=== PATIENT | male | born 1955 | race Caucasian/White ===

== ENCOUNTER 2018-01-01 19:07 | Observation (INO) | payer OTHER, SELFPAY ==
[2018-01-01 19:09] VITALS: BP 160/98; PULSE 86; RESP 18; TEMP 36.6; O2SAT 100; BMI 24.7
--- NOTE | 2018-01-01 19:20 | ED_ITS ---
HPI - Syncope <KD Rodas - Last Filed: 01/01/18 22:13> General Chief Complaint: Arrhythmia/Palpitations Stated Complaint: states passed out 3 hrs ago thinks AFIB Time Seen by Provider: 01/01/18 19:16 Source: patient Mode of arrival: ambulatory Limitations: no limitations History of Present Illness HPI narrative: A 62-year-old male with history of hypertension and AFib that is nonsmoker here for complaint of presyncope/syncopal episode earlier this afternoon. Approximately at 3:00 this afternoon he had a period of about 3-4 minutes where he felt like he was going to pass out he does not think that he did pass out however his state that he did. He states that his symptoms have resolved at times of exam. He denies any chest pain no shortness of breath. He denies any fevers or chills. He denies any headache. He states he feels better at this timeframe. He denies any other concerns or complaints at this timeframe. Related Data Home Medications Medication Instructions Recorded Confirmed apixaban [Eliquis] 5 mg PO BID 01/01/18 01/01/18 hydrochlorothiazide 25 mg PO DAILY 01/01/18 01/01/18 irbesartan 300 mg PO DAILY 01/01/18 01/01/18 Allergies Allergy/AdvReac Type Severity Reaction Status Date / Time codeine Allergy Unknown Verified 01/01/18 22:51 Influenza Virus Vaccines Allergy Unknown Verified 01/01/18 22:51 Review of Systems <KD Rodas - Last Filed: 01/01/18 22:13> Constitutional Denies chills, Denies fever(s), Denies lethargy and Denies weakness Eyes Denies change in vision, Denies eye discharge, Denies irritation and Denies loss of vision ENT Ears, Nose, Mouth, and Throat: Denies change in voice, Denies neck pain and Denies sore throat Cardiovascular Denies chest pain, Reports syncope, Denies irregular heart rhythm, Denies lightheadedness, Denies palpitations, Denies dyspnea, Denies dyspnea on exertion and Denies orthopnea Respiratory Denies cough, Denies dyspnea, Denies dyspnea on exertion and Denies wheezing Gastrointestinal Gastrointestinal: Denies abdominal pain, Denies change in bowel habits, Denies diarrhea, Denies nausea and Denies vomiting Genitourinary Denies hematuria, Denies flank pain, Denies urinary incontinence and Denies urinary urgency Musculoskeletal Denies neck pain Integumentary/Breasts Denies pruritus, Denies erythema, Denies rash and Denies wounds Neurologic Denies confusion, Reports syncope, Denies loss of vision and Denies weakness Psychiatric Denies anxiety, Denies confusion, Denies depression, Denies homicidal ideation and Denies suicidal ideation Endocrine Denies palpitations Hematologic/Lymphatic Denies easy bruising Allergic/Immunologic Denies wheezing Exam <KD Rodas - Last Filed: 01/01/18 22:13> Initial Vital Signs Initial Vital Signs: Vital Signs Temperature 97.8 F 01/01/18 19:09 Pulse Rate 86 01/01/18 19:09 Respiratory Rate 18 01/01/18 19:09 Blood Pressure 160/98 H 01/01/18 19:09 Pulse Oximetry 100 01/01/18 19:09 Const General: cooperative and well developed Nutritional Appearance: well nourished Orientation: alert, awake, oriented x3 and not confused HENIN Mouth: oral mucosae normal and moist mucous membranes Eyes Conjunctivae: conjunctivae normal Sclera: sclerae normal Pupils: PERRL EOM: EOM intact bilaterally Neck Neck: normal visual inspection, trachea midline, No lymphadenopathy, No midline deformity and No JVD Lymphatic: No lymphedema Chest Chest: normal inspection of the chest Resp Effort & Inspection: normal respiratory effort, able to speak in complete sentences, no respiratory distress and no use of accessory muscles Auscultation: clear to auscultation bilaterally, no rales, no rhonchi and no wheezes Cardio Rate: regular rate Rhythm: abnormal rhythm irregularly irregular Heart Sounds: no click, no gallops, no murmurs and no rubs Pulses: normal peripheral pulses Skin General: no rashes or lesions noted Neuro Cognition: normal cognition Speech: speech normal Gait: normal gait Motor: muscle tone normal throughout Sensory Exam: no sensory deficits noted <Willian Ambrocio DO - Last Filed: 01/02/18 05:22> Initial Vital Signs Initial Vital Signs: Vital Signs Temperature 97.8 F 01/01/18 19:09 Pulse Rate 86 01/01/18 19:09 Respiratory Rate 18 01/01/18 19:09 Blood Pressure 160/98 H 01/01/18 19:09 Pulse Oximetry 100 01/01/18 19:09 Course <KD Rodas - Last Filed: 01/01/18 22:13> Orders Ordered: ED Orders 01/01/18 21:29 Consult to Discharge Planning Routine EC echo doppler complete Routine 01/02/18 Basic Metabolic Panel Routine Complete Blood Count AUTO DIFF Routine Magnesium Routine Apixaban (Eliquis) 5 mg PO BID [facility] Last Admin: 01/01/18 22:54 Dose: Hydrochlorothiazide (Hydrochlorothiazide) 25 mg PO DAILY CARLEY Irbesartan (Avapro) 300 mg PO DAILY CARLEY Discontinued Medications Sodium Chloride (Normal Saline 0.9%) 1,000 mls @ 1,000 mls/hr IV BOLUS ONE Stop: 01/01/18 20:32 Last Infusion: 01/01/18 21:06 Dose: 0 mls/hr Admin: 01/01/18 19:30 Dose: 1,000 mls/hr Vital Signs - 8 hr 01/01/18 22:05 01/02/18 00:16 Temperature 97.9 F 97.6 F Pulse Rate 71 72 Pulse Rate [Orthostatic Lying] 72 Pulse Rate [Orthostatic Sitting] 75 Pulse Rate [Orthostatic Standing] 81 Respiratory Rate 18 16 Blood Pressure 159/97 H 139/86 Blood Pressure [Orthostatic Lying] 139/86 Blood Pressure [Orthostatic Sitting] 158/96 H Blood Pressure [Orthostatic Standing] 143/93 H Pulse Oximetry 100 98 <Willian Ambrocio DO - Last Filed: 01/02/18 05:22> Orders Ordered: ED Orders 01/01/18 21:29 Consult to Discharge Planning Routine EC echo doppler complete Routine 01/02/18 Basic Metabolic Panel Routine Complete Blood Count AUTO DIFF Routine Magnesium Routine Apixaban (Eliquis) 5 mg PO BID [facility] Last Admin: 01/01/18 22:54 Dose: Hydrochlorothiazide (Hydrochlorothiazide) 25 mg PO DAILY CARLEY Irbesartan (Avapro) 300 mg PO DAILY CARLEY Discontinued Medications Sodium Chloride (Normal Saline 0.9%) 1,000 mls @ 1,000 mls/hr IV BOLUS ONE Stop: 01/01/18 20:32 Last Infusion: 01/01/18 21:06 Dose: 0 mls/hr Admin: 01/01/18 19:30 Dose: 1,000 mls/hr Vital Signs - 8 hr 01/01/18 22:05 01/02/18 00:16 Temperature 97.9 F 97.6 F Pulse Rate 71 72 Pulse Rate [Orthostatic Lying] 72 Pulse Rate [Orthostatic Sitting] 75 Pulse Rate [Orthostatic Standing] 81 Respiratory Rate 18 16 Blood Pressure 159/97 H 139/86 Blood Pressure [Orthostatic Lying] 139/86 Blood Pressure [Orthostatic Sitting] 158/96 H Blood Pressure [Orthostatic Standing] 143/93 H Pulse Oximetry 100 98 MDM - Syncope <KD Rodas - Last Filed: 01/01/18 22:13> Lab Data Result diagrams: 01/01/18 19:54 01/01/18 19:54 Lab Results 01/01/18 01/01/18 01/01/18 Range/Units 19:30 19:30 19:54 WBC 9.6 (4.5-11.0) X10^3/uL RBC 4.61 (4.5-5.9) X10^6/uL Hgb 14.8 (13.5-17.5) g/dL Hct 43.6 (41-53) % MCV 94.6 (80-100) fL MCH 32.1 (26-34) PG MCHC 33.9 (30-36) % RDW 13.3 (11.6-14.8) % Plt Count 220 (150-400) X10^3/uL Neut % (Auto) 79.4 H (50-75) % Lymph % (Auto) 14.7 L (25-40) % Kings % (Auto) 4.4 (3-14) % Eos % (Auto) 0.9 L (2-4) % Baso % (Auto) 0.6 (0-2) % Neut # (Auto) 7600 H (8904-2806) /uL Sodium (137-145) mmol/L Potassium (3.4-5.1) mmol/L Chloride (98-107) mmol/L Carbon Dioxide (22-32) mmol/L BUN (9-20) mg/dL Creatinine (0.66-1.25) mg/dL Estimated GFR (>60) mL/min BUN/Creatinine Ratio (6-22) Glucose (80-110) mg/dL Calcium (8.4-10.2) mg/dL Magnesium 1.9 (1.6-2.3) mg/dL Total Bilirubin (0.2-1.3) mg/dL AST (17-59) IU/L ALT (21-72) IU/L Alkaline Phosphatase (38-126) U/L Total Creatine Kinase (55-170) U/L CK-MB (CK-2) CK-MB (CK-2) Rel Index Troponin I (0.01-0.034) ng/mL Total Protein (6.3-8.2) g/dL Albumin (3.5-5.0) g/dL Globulin (1.7-4.1) g/dL Albumin/Globulin Ratio (1.0-2.8) TSH 2.19 (0.47-4.68) uIU/mL 01/01/18 Range/Units 19:54 WBC (4.5-11.0) X10^3/uL RBC (4.5-5.9) X10^6/uL Hgb (13.5-17.5) g/dL Hct (41-53) % MCV (80-100) fL MCH (26-34) PG MCHC (30-36) % RDW (11.6-14.8) % Plt Count (150-400) X10^3/uL Neut % (Auto) (50-75) % Lymph % (Auto) (25-40) % Kings % (Auto) (3-14) % Eos % (Auto) (2-4) % Baso % (Auto) (0-2) % Neut # (Auto) (1609-2003) /uL Sodium 141 (137-145) mmol/L Potassium 3.8 (3.4-5.1) mmol/L Chloride 101 (98-107) mmol/L Carbon Dioxide 27 (22-32) mmol/L BUN 20 (9-20) mg/dL Creatinine 1.10 (0.66-1.25) mg/dL Estimated GFR > 60.0 (>60) mL/min BUN/Creatinine Ratio 18.2 (6-22) Glucose 112 H (80-110) mg/dL Calcium 9.7 (8.4-10.2) mg/dL Magnesium (1.6-2.3) mg/dL Total Bilirubin 0.8 (0.2-1.3) mg/dL AST 27 (17-59) IU/L ALT 37 (21-72) IU/L Alkaline Phosphatase 57 (38-126) U/L Total Creatine Kinase 76 (55-170) U/L CK-MB (CK-2) TNP CK-MB (CK-2) Rel Index TNP Troponin I 0.012 (0.01-0.034) ng/mL Total Protein 7.1 (6.3-8.2) g/dL Albumin 4.7 (3.5-5.0) g/dL Globulin 2.4 (1.7-4.1) g/dL Albumin/Globulin Ratio 2.0 (1.0-2.8) TSH (0.47-4.68) uIU/mL Urine Dip Bedside Urine Glucose Negative Bedside Urine Bilirubin - Negative Bedside Urine Ketone - Negative Urine Specific [place] 1.010 Bedside Urine Occult Blood - Negative Bedside Urine pH 6.0 Bedside Urine Protein - Negative Bedside Urine Urobilinogen - Negative Bedside Urine Nitrite - Negative Bedside Urine Leukocytes - Negative Esterase Imaging Data Chest x-ray: Radiologist's impression: [place] [address] XRay Report Signed Patient: Jackson Boles WMR#: [id number] : 5Acct:[id number] Age/Sex: 62 / MDate of Service: 01/01/18 Loc: ED Accession Number: [id number] Procedure: XR chest 1V Ordering Provider: Jonnie Almaraz PROCEDURE: XR CHEST 1V INDICATIONS: Pre syncopal episode earlier today history of AFib TECHNIQUE: One view of the chest was acquired. COMPARISON: None. FINDINGS: Surgical changes and devices: None. Lungs and pleura: No pleural effusions or pneumothorax. Lungs are clear. Mediastinum: Mediastinal contours appear normal. Heart size is normal. Bones and chest wall: No suspicious bony lesions. Overlying soft tissues appear unremarkable. IMPRESSION: No acute pulmonary process. Dictated by: Nell Valente M.D. on 01/01/2018 at 19:44 Approved by: Nell Valente M.D. on 01/01/2018 at 19:44 ECG Data Interpretation: EKG shows atrial fibrillation. No ST elevation or depression. He also has had some PVCs. Ventricular rate of 84. QRS duration 97. QT of 390. MDM Narrative Medical decision making narrative: EKG shows atrial fibrillation with a few PVCs. No ST elevation or depression. Chest x-ray was obtained was negative for any acute findings. CBC and Chem panel were obtained and were unremarkable. Cardiac enzymes were obtained and were negative. Unsure of the cause of his syncope however is he has a history of having a Deandre episodes in the past he is currently awaiting a Holter monitor for further evaluation. Suspect that he may have had a bradycardic episode causing the syncope. A recommended the patient that he stay in the hospital overnight for observation to ensure that we do not have any more syncopal episodes. Patient reluctantly agreed. Discussed case with hospitalist KD shook who accepted patient. [facility] <Willian Ambrocio DO - Last Filed: 01/02/18 05:22> Lab Data Lab Results 01/01/18 01/01/18 01/01/18 Range/Units 19:30 19:30 19:54 WBC 9.6 (4.5-11.0) X10^3/uL RBC 4.61 (4.5-5.9) X10^6/uL Hgb 14.8 (13.5-17.5) g/dL Hct 43.6 (41-53) % MCV 94.6 (80-100) fL MCH 32.1 (26-34) PG MCHC 33.9 (30-36) % RDW 13.3 (11.6-14.8) % Plt Count 220 (150-400) X10^3/uL Neut % (Auto) 79.4 H (50-75) % Lymph % (Auto) 14.7 L (25-40) % Kings % (Auto) 4.4 (3-14) % Eos % (Auto) 0.9 L (2-4) % Baso % (Auto) 0.6 (0-2) % Neut # (Auto) 7600 H (4666-6216) /uL Sodium (137-145) mmol/L Potassium (3.4-5.1) mmol/L Chloride (98-107) mmol/L Carbon Dioxide (22-32) mmol/L BUN (9-20) mg/dL Creatinine (0.66-1.25) mg/dL Estimated GFR (>60) mL/min BUN/Creatinine Ratio (6-22) Glucose (80-110) mg/dL Calcium (8.4-10.2) mg/dL Magnesium 1.9 (1.6-2.3) mg/dL Total Bilirubin (0.2-1.3) mg/dL AST (17-59) IU/L ALT (21-72) IU/L Alkaline Phosphatase (38-126) U/L Total Creatine Kinase (55-170) U/L CK-MB (CK-2) CK-MB (CK-2) Rel Index Troponin I (0.01-0.034) ng/mL Total Protein (6.3-8.2) g/dL Albumin (3.5-5.0) g/dL Globulin (1.7-4.1) g/dL Albumin/Globulin Ratio (1.0-2.8) TSH 2.19 (0.47-4.68) uIU/mL //18 Range/Units 19:54 WBC (4.5-11.0) X10^3/uL RBC (4.5-5.9) X10^6/uL Hgb (13.5-17.5) g/dL Hct (41-53) % MCV (80-100) fL MCH (26-34) PG MCHC (30-36) % RDW (11.6-14.8) % Plt Count (150-400) X10^3/uL Neut % (Auto) (50-75) % Lymph % (Auto) (25-40) % Kings % (Auto) (3-14) % Eos % (Auto) (2-4) % Baso % (Auto) (0-2) % Neut # (Auto) (1257-3786) /uL Sodium 141 (137-145) mmol/L Potassium 3.8 (3.4-5.1) mmol/L Chloride 101 (98-107) mmol/L Carbon Dioxide 27 (22-32) mmol/L BUN 20 (9-20) mg/dL Creatinine 1.10 (0.66-1.25) mg/dL Estimated GFR > 60.0 (>60) mL/min BUN/Creatinine Ratio 18.2 (6-22) Glucose 112 H (80-110) mg/dL Calcium 9.7 (8.4-10.2) mg/dL Magnesium (1.6-2.3) mg/dL Total Bilirubin 0.8 (0.2-1.3) mg/dL AST 27 (17-59) IU/L ALT 37 (21-72) IU/L Alkaline Phosphatase 57 (38-126) U/L Total Creatine Kinase 76 (55-170) U/L CK-MB (CK-2) TNP CK-MB (CK-2) Rel Index TNP Troponin I 0.012 (0.01-0.034) ng/mL Total Protein 7.1 (6.3-8.2) g/dL Albumin 4.7 (3.5-5.0) g/dL Globulin 2.4 (1.7-4.1) g/dL Albumin/Globulin Ratio 2.0 (1.0-2.8) TSH (0.47-4.68) uIU/mL Urine Dip Bedside Urine Glucose Negative Bedside Urine Bilirubin - Negative Bedside Urine Ketone - Negative Urine Specific [place] 1.010 Bedside Urine Occult Blood - Negative Bedside Urine pH 6.0 Bedside Urine Protein - Negative Bedside Urine Urobilinogen - Negative Bedside Urine Nitrite - Negative Bedside Urine Leukocytes - Negative Esterase Discharge Plan Departure Patient Disposition: Admitted as Observation Clinical Impression: Pre-syncope Discharge Date/Time: 01/01/18 21:50 Interventions: ED Discharge Assessment Last Done: 01/01/18 21:22 Admit Date/Time: 01/01/18 21:05 Admit Provider: Jeanna Hutton <Willian Ambrocio DO - Last Filed: 01/02/18 05:22> Cosign ED Attending Billieature Attestation: I was immediately available in the department for consultation. Documentation has been reviewed. I agree with assessment and plan.
[2018-01-01] MEDS: SODIUM CHLORIDE 0.9% 1,000 ML 1000 ML IV (19:30)
--- NOTE | 2018-01-01 19:34 | DI.RAD.S_ITS ---
PROCEDURE: XR CHEST 1V INDICATIONS: Pre syncopal episode earlier today history of AFib TECHNIQUE: One view of the chest was acquired. COMPARISON: None. FINDINGS: Surgical changes and devices: None. Lungs and pleura: No pleural effusions or pneumothorax. Lungs are clear. Mediastinum: Mediastinal contours appear normal. Heart size is normal. Bones and chest wall: No suspicious bony lesions. Overlying soft tissues appear unremarkable. IMPRESSION: No acute pulmonary process. Dictated by: Nell Valente M.D. on 01/01/2018 at 19:44 Approved by: Nell Valente M.D. on 01/01/2018 at 19:44
[2018-01-01 20:00] VITALS: BP 152/92; PULSE 68; RESP 17; O2SAT 100
[2018-01-01 20:08] LABS: Add Manual Diff / Slide Review NO; Basophils Percent Auto 0.6 % (0-2); Eosinophils Percent Auto 0.9 % (2-4); Hematocrit 43.6 % (41-53); Hemoglobin 14.8 g/dL (13.5-17.5); Lymphocytes Percent Auto 14.7 % (25-40); Mean Corpuscular HGB Conc 33.9 % (30-36); Mean Corpuscular Hemoglobin 32.1 PG (26-34); Mean Corpuscular Volume 94.6 fL (80-100); Monocytes Percent Auto 4.4 % (3-14); Neutrophils Absolute Auto 7600 /uL (3000-5900); Neutrophils Percent Auto 79.4 % (50-75); Platelet Count 220 X10^3/uL (150-400); Red Blood Cell Count 4.61 X10^6/uL (4.5-5.9); Red Cell Distribution Width 13.3 % (11.6-14.8); White Blood Cell Count 9.6 X10^3/uL (4.5-11.0)
[2018-01-01 20:17] LABS: Alanine Aminotransferase 37 IU/L (21-72); Albumin 4.7 g/dL (3.5-5.0); Alkaline Phosphatase 57 U/L (38-126); Aspartate Aminotransferase 27 IU/L (17-59); BUN Creatinine Ratio 18.2 (6-22); Bilirubin Total 0.8 mg/dL (0.2-1.3); Blood Urea Nitrogen 20 mg/dL (9-20); Calcium 9.7 mg/dL (8.4-10.2); Carbon Dioxide 27 mmol/L (22-32); Chloride 101 mmol/L (98-107); Creatine Kinase 76 U/L (55-170); Estimated Glomerular Filt Rate > 60.0 mL/min (>60); Globulin 2.4 g/dL (1.7-4.1); Glucose 112 mg/dL (80-110); HEMOLYSIS 16 (0-50); Potassium 3.8 mmol/L (3.4-5.1); Sodium 141 mmol/L (137-145); Total Protein 7.1 g/dL (6.3-8.2)
[2018-01-01 20:29] LABS: Troponin I 0.012 ng/mL (0.01-0.034)
[2018-01-01 21:00] VITALS: BP 161/100; PULSE 82; RESP 18; O2SAT 99
[2018-01-01 21:14] VITALS: BMI 24.7
--- NOTE | 2018-01-01 21:31 | PM.HP.1 ---
History of Present Illness Date Patient Seen: 01/01/18 Time Patient Seen: 21:10 Chief complaint: states passed out 3 hrs ago thinks AFIB Narrative: The patient is a 62-year-old male with PMH significant for persistent AFIB (chronically AC w/ Eliquis) and HTN. Patient presents out of a concern for a pre-syncopal event. The event has taken place in the 4:00 a.m. hour, respectively, on 01/01/2018. At time of the event patient was in an upright position (standing). He was not involved in an activity that would precipitate a vasovagal response. Reports sudden onset palpitations, dizziness, and an awareness of an impending syncopal event. At that time he reclined himself onto a chair. Palpitations and dizziness resolved in 4-5 seconds. Patient reports checking his heart rate on the iWatch and notes it to be in the 40s. He did not experience a syncopal event w/ loss of consciousness. Denies concurrent symptoms a headache, change in vision, chest pain, dyspnea, diaphoresis, nausea, vomiting, confusion or disorientation. Patient has had a similar event in January of 2017. At that time was monitored w/ a ZIO Patch for 60 days. Patient does follow with Cardiology, [facility] in [place], [place]. Patient has an underlying history of persistent AFIB. He is not on a beta-nathalia or an anti arrhythmic medication. He is anti-coagulated with Eliquis. Denies prior history of cardioversion or catheter ablation. Patient states that his heart rate typically runs in the 40s while he is sleeping, but never while he is awake. Heart rate of 60-70s bpm during waking hours. Patient exercises routinely. Notes paddle boarding 6 miles daily or 1.5 hours of cardioactivity, in the past week, has not been able to exercise routinely; however, does not attribute that to exercise intolerance but to circumstances at home. Patient does have elevated blood pressure. Recently his ARB was changed from losartan to irbesartan. Last week, patient reports experiencing hematuria. Reports elevated PSA at 5.25. Family history significant for prostate cancer in patient's father. Patient History Medical History Chronic atrial fibrillation (Acute) Essential hypertension (Acute) Pre-syncope (Acute) Family & Social History Safety & Behavioral: Feels Safe in Current Yes Environment Tobacco & Substance use: Smoking Status Never smoker alcohol intake frequency a few times a week Substance Use Type does not use Meds Home Medications Medication Instructions Recorded Confirmed Type apixaban [Eliquis] 5 mg PO BID 01/01/18 01/01/18 History hydrochlorothiazide 25 mg PO DAILY 01/01/18 01/01/18 History irbesartan 300 mg PO DAILY 01/01/18 01/01/18 History Review of Systems Review of Systems All systems reviewed & are unremarkable except as noted in HPI and below Exam Vital Signs (past 8 hours): - 01/01/18 19:09 01/01/18 20:00 01/01/18 21:00 Temperature 97.8 F Pulse Rate 86 68 82 Respiratory Rate 18 17 18 Blood Pressure 160/98 H Blood Pressure [Right Arm] 152/92 H 161/100 H Pulse Oximetry 100 100 99 Oxygen Delivery Method Room Air Narrative Exam Narrative: Constitutional: NAD Neurologic: AOx3, no focal neurological deficits Head: NC, AT Eyes: PERRL, EOMI, Ears: external ears normal, no otorrhea Nose: external nose normal, no rhinorrhea or epistaxis Throat: MMM, oropharynx w/o exudate Neck: no masses, lymphadenopathy, or JVD Chest / Respiratory: equal chest rise, unlabored respiratory effort, CTAB Heart / CV: Irregularly irregular, no murmur Abdomen / GI: round, NT, ND, + BS, no organomegaly : no suprapubic tenderness, no CVA Peripheral / Vascular: warm to touch, DP and PT pulses palpable, no edema Musc: full ROM of upper and lower extremities, adequate muscle tone and bulk Skin: no ecchymosis or suspicious lesions / ulcers Objective Labs Result Diagrams: 01/01/18 19:54 01/01/18 19:54 Labs: Laboratory Results - last 24 hr 01/01/18 01/01/18 19:54 19:54 WBC 9.6 RBC 4.61 Hgb 14.8 Hct 43.6 MCV 94.6 MCH 32.1 MCHC 33.9 RDW 13.3 Plt Count 220 Neut % (Auto) 79.4 H Lymph % (Auto) 14.7 L [place] % (Auto) 4.4 Eos % (Auto) 0.9 L Baso % (Auto) 0.6 Neut # (Auto) 7600 H Sodium 141 Potassium 3.8 Chloride 101 Carbon Dioxide 27 BUN 20 Creatinine 1.10 Estimated GFR > 60.0 BUN/Creatinine Ratio 18.2 Glucose 112 H Calcium 9.7 Total Bilirubin 0.8 AST 27 ALT 37 Alkaline Phosphatase 57 Total Creatine Kinase 76 CK-MB (CK-2) TNP CK-MB (CK-2) Rel Index TNP Troponin I 0.012 Total Protein 7.1 Albumin 4.7 Globulin 2.4 Albumin/Globulin Ratio 2.0 Assessment & Plan Plan: Assessment/Plan Narrative: Presyncope Likely of cardiac origin, potentially in the setting of a bertin-arrhythmia w/ HR in the 40s at time of the event No overt e-lyte abnormalities - Admit w/ observation status - Tele monitoring, continuous - Orhtostatic BP, QShift - Echo in am - Add Magnesium Chronic atrial fibrillation with controlled ventricular rate - not on any rate/rhythm control medications - contraindication to some CCB and BB d/t bradyarrhythmia - continue anticoagulation with Eliquis per ASSISTANT COUNSEL dose / regimen Hypertension, sub-optimally controlled ASSISTANT COUNSEL anti-hypertensive regimen consists of a HCTZ 25 mg daily and ibersartan 300 mg QD Reports an allergy to ACEi - cough. Reports intolerance to IV vasodilator, not able to recall specific medication. - trend BP - consider Procardia XL 30 mg if hypertension persists Bundle Branch Block (right) New vs pre-existing... To be evaluated outpatient. No chest pain. EKG non-ischemic. Trop WNL. Hematuria, no bleeding at present time Hematuria last week. Hgb stable. On Eliquis. Hx of recently elevated PSA, follows outpatient closely. FHx of prostate cancer. - F/u w/ urology outpatient
--- NOTE | 2018-01-01 21:48 | P.HP_ITS ---
History of Present Illness Date Patient Seen: 01/01/18 Time Patient Seen: 21:10 Chief complaint: states passed out 3 hrs ago thinks AFIB Narrative: The patient is a 62-year-old male with PMH significant for persistent AFIB (chronically AC w/ Eliquis) and HTN. Patient presents out of a concern for a pre-syncopal event. The event has taken place in the 4:00 a.m. hour, respectively, on 01/01/2018. At time of the event patient was in an upright position (standing). He was not involved in an activity that would precipitate a vasovagal response. Reports sudden onset palpitations, dizziness , and an awareness of an impending syncopal event. At that time he reclined himself onto a chair. Palpitations and dizziness resolved in 4-5 seconds. Patient reports checking his heart rate on the iWatch and notes it to be in the 40s. He did not experience a syncopal event w/ loss of consciousness. Denies concurrent symptoms a headache, change in vision, chest pain, dyspnea, diaphoresis, nausea, vomiting, confusion or disorientation. Patient has had a similar event in January of 2017. At that time was monitored w/ a ZIO Patch for 60 days. Patient does follow with Cardiology, [facility] [place], [place]. Patient has an underlying history of persistent AFIB. He is not on a beta- nathalia or an anti arrhythmic medication. He is anti-coagulated with Eliquis. Denies prior history of cardioversion or catheter ablation. Patient states that his heart rate typically runs in the 40s while he is sleeping, but never while he is awake. Heart rate of 60-70s bpm during waking hours. Patient exercises routinely. Notes paddle boarding 6 miles daily or 1.5 hours of cardioactivity, in the past week, has not been able to exercise routinely; however, does not attribute that to exercise intolerance but to circumstances at home. Patient does have elevated blood pressure. Recently his ARB was changed from losartan to irbesartan. Last week, patient reports experiencing hematuria. Reports elevated PSA at 5.25. Family history significant for prostate cancer in patient's father. Patient History Medical History Chronic atrial fibrillation (Acute) Essential hypertension (Acute) Pre-syncope (Acute) Family & Social History Safety & Behavioral: Feels Safe in Current Yes Environment Tobacco & Substance use: Smoking Status Never smoker alcohol intake frequency a few times a week Substance Use Type does not use Meds Home Medications Medication Instructions Recorded Confirmed Type apixaban [Eliquis] 5 mg PO BID 01/01/18 01/01/18 History hydrochlorothiazide 25 mg PO DAILY 01/01/18 01/01/18 History irbesartan 300 mg PO DAILY 01/01/18 01/01/18 History Review of Systems Review of Systems All systems reviewed & are unremarkable except as noted in HPI and below Exam Vital Signs (past 8 hours): - 01/01/18 19:09 01/01/18 20:00 01/01/18 21:00 Temperature 97.8 F Pulse Rate 86 68 82 Respiratory Rate 18 17 18 Blood Pressure 160/98 H Blood Pressure [Right Arm] 152/92 H 161/100 H Pulse Oximetry 100 100 99 Oxygen Delivery Method Room Air Narrative Exam Narrative: Constitutional: NAD Neurologic: AOx3, no focal neurological deficits Head: NC, AT Eyes: PERRL, EOMI, Ears: external ears normal, no otorrhea Nose: external nose normal, no rhinorrhea or epistaxis Throat: MMM, oropharynx w/o exudate Neck: no masses, lymphadenopathy, or JVD Chest / Respiratory: equal chest rise, unlabored respiratory effort, CTAB Heart / CV: Irregularly irregular, no murmur Abdomen / GI: round, NT, ND, + BS, no organomegaly : no suprapubic tenderness, no CVA Peripheral / Vascular: warm to touch, DP and PT pulses palpable, no edema Musc: full ROM of upper and lower extremities, adequate muscle tone and bulk Skin: no ecchymosis or suspicious lesions / ulcers Objective Labs Result Diagrams: 01/01/18 19:54 01/01/18 19:54 Labs: Laboratory Results - last 24 hr 01/01/18 01/01/18 19:54 19:54 WBC 9.6 RBC 4.61 Hgb 14.8 Hct 43.6 MCV 94.6 MCH 32.1 MCHC 33.9 RDW 13.3 Plt Count 220 Neut % (Auto) 79.4 H Lymph % (Auto) 14.7 L [place] % (Auto) 4.4 Eos % (Auto) 0.9 L Baso % (Auto) 0.6 Neut # (Auto) 7600 H Sodium 141 Potassium 3.8 Chloride 101 Carbon Dioxide 27 BUN 20 Creatinine 1.10 Estimated GFR > 60.0 BUN/Creatinine Ratio 18.2 Glucose 112 H Calcium 9.7 Total Bilirubin 0.8 AST 27 ALT 37 Alkaline Phosphatase 57 Total Creatine Kinase 76 CK-MB (CK-2) TNP CK-MB (CK-2) Rel Index TNP Troponin I 0.012 Total Protein 7.1 Albumin 4.7 Globulin 2.4 Albumin/Globulin Ratio 2.0 Assessment & Plan Plan: Assessment/Plan Narrative: Presyncope Likely of cardiac origin, potentially in the setting of a bertin-arrhythmia w/ HR in the 40s at time of the event No overt e-lyte abnormalities - Admit w/ observation status - Tele monitoring, continuous - Orhtostatic BP, QShift - Echo in am - Add Magnesium Chronic atrial fibrillation with controlled ventricular rate - not on any rate/rhythm control medications - contraindication to some CCB and BB d/t bradyarrhythmia - continue anticoagulation with Eliquis per LOSS PREVENTION OPERATIONS MANAGER dose / regimen Hypertension, sub-optimally controlled LOSS PREVENTION OPERATIONS MANAGER anti-hypertensive regimen consists of a HCTZ 25 mg daily and ibersartan 300 mg QD Reports an allergy to ACEi - cough. Reports intolerance to IV vasodilator, not able to recall specific medication. - trend BP - consider Procardia XL 30 mg if hypertension persists Bundle Branch Block (right) New vs pre-existing... To be evaluated outpatient. No chest pain. EKG non-ischemic. Trop WNL. Hematuria, no bleeding at present time Hematuria last week. Hgb stable. On Eliquis. Hx of recently elevated PSA, follows outpatient closely. FHx of prostate cancer. - F/u w/ urology outpatient
[2018-01-01 22:05] VITALS: BP 159/97; PULSE 71; RESP 18; TEMP 36.6; O2SAT 100
[2018-01-01 22:55] LABS: Magnesium 1.9 mg/dL (1.6-2.3)
[2018-01-01 23:27] LABS: Thyroid Stimulating Hormone 2.19 uIU/mL (0.47-4.68)
[2018-01-02 00:16] VITALS: BP 139/86; BP 143/93; BP 158/96; PULSE 72; PULSE 75; PULSE 81; RESP 16; TEMP 36.4; O2SAT 98
[2018-01-02 05:38] VITALS: BP 165/101; PULSE 58; RESP 16; TEMP 36.4; O2SAT 98
[2018-01-02] MEDS: APIXABAN 5 MG TABLET PO (06:35)
[2018-01-02] MEDS: hydroCHLOROthiazide 25 MG TABLET PO (06:36)
[2018-01-02] MEDS: IRBESARTAN 150 MG TABLET 300 MG PO (06:36)
[2018-01-02 07:00] VITALS: BP 153/100; PULSE 65; RESP 17; TEMP 36.6; O2SAT 100
--- NOTE | 2018-01-02 07:28 | P.DS_ITS ---
History of Present Illness Date Patient Seen: 01/02/18 Time Patient Seen: 11:46 Chief complaint: states passed out 3 hrs ago thinks AFIB Narrative: THIS IS A VERY PLEASANT 62-YEAR-OLD MALE ADMITTED TO THE HOSPITAL AFTER A PRESYNCOPAL EPISODE. PATIENT REPORTED THAT HE WAS AT HOME AND STARTED FEELING VERY DIZZY AND FELT LIKE HE WAS GOING TO PASS OUT. HE HAD A DEVICE CHECK HIS PULSE AND REALIZES PULSE WAS IN THE 40S. THIS IS THE 1ST TIME THIS HAS HAPPENED. 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 AT THIS TIME HE IS ASYMPTOMATIC. 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 WE AGREE WITH PATIENT'S WISHES TO BE DISCHARGED. AT THIS POINT ADDITIONAL MEASURE WITH DEFERRED TO THE OUTPATIENT PROVIDERS Discharge Providers Date of admission: 01/01/18 21:05 Consults: 01/01/18 21:29 Consult to Discharge Planning Routine Comment: Discharge provider: Aleksandar Henson DO Discharge Date: 01/02/18 Summary Discharge Diagnosis: PRESYNCOPAL EPISODE. THIS IS SECONDARY TO SCOTTIE TACHY SYNDROME. OUTPATIENT MANAGEMENT WITH POSSIBLE PACEMAKER PLACEMENT CHRONIC ATRIAL FIBRILLATION. APPEARS STABLE. HYPERTENSION STABLE AT THIS POINT. PATIENT IS ON HCTZ AND AN ARB WHICH WILL CONTINUE AT THIS TIME REPORTED HEMATURIA. OUTPATIENT MANAGEMENT Hospital Course: PATIENT ADMITTED TO THE HOSPITAL DUE TO PRESYNCOPAL EPISODE. THIS WAS SUSPECTED TO BE SECONDARY TO BRADYCARDIA. AT THIS POINT, HIS HEART RATE IS AT BASELINE AND PATIENT APPEARS ASYMPTOMATIC. HE IS BEING FOLLOWED OUTPATIENT BY CARDIOLOGY FOR FURTHER MANAGEMENT WITH POSSIBLE PACEMAKER PLACEMENT. PATIENT REQUESTED TO BE DISCHARGED. AT THIS POINT WE AGREED DUE TO THE LIMITATION OF OUR RESOURCES IN THE HOSPITAL. PATIENT APPEARED TO BE STABLE. ADDITIONAL MEASURE AT THIS VISIT WILL BE DEFERRED TO HIS OUTPATIENT PROVIDERS. WE ALSO NOTED PATIENT HAD SOME MILD HEMATURIA. AGAIN HE CAN BE FOLLOWED OUTPATIENT WITH UROLOGY INDICATED FOR FURTHER WORKUP Status at Discharge Cognitive/behavioral status at discharge: STABLE TO HOME IN NO ACUTE DISTRESS Functional status at discharge: independent ambulation Overall status at discharge: patient is back to baseline Time Spent with Patient Greater than 30 minutes Exam Vital Signs (past 8 hours): - 01/02/18 00:16 01/02/18 05:38 Temperature 97.6 F 97.5 F L Pulse Rate 72 58 L Pulse Rate [Orthostatic Lying] 72 Pulse Rate [Orthostatic Sitting] 75 Pulse Rate [Orthostatic Standing] 81 Respiratory Rate 16 16 Blood Pressure 139/86 165/101 H Blood Pressure [Orthostatic Lying] 139/86 Blood Pressure [Orthostatic Sitting] 158/96 H Blood Pressure [Orthostatic Standing] 143/93 H Pulse Oximetry 98 98 Oxygen Delivery Method Room Air Narrative Exam Narrative: NO ACUTE DISTRESS. PATIENT IS ALERT ORIENTED X3. VITAL SIGNS STABLE HEAD ATRAUMATIC NORMOCEPHALIC NECK : SUPPLE WITHOUT ADENOPATHY BECAUSE SHE WOULD HAS REVIEWED THE EYE: EOMI, PERRLA, NORMAL CONJUNCTIVA CHEST: REGULAR RATE.. NO RUBS. PMI IS NON DISPLACED. NO MURMUR PULMONARY DECREASED AIR MOVEMENT OVER THE BASES. MILD BIBASILAR CRACKLES NOTED ; NO INCREASED DULLNESS TO PERCUSSION EXTREMITIES: 1+ EDEMA. NONPITTING. NO CYANOSIS CLUBBING NOTED. NEURO: CRANIAL NERVES 2-12 GROSSLY INTACT. NO FOCAL NEUROLOGICAL DEFICIT NOTED. MSK: NORMAL RANGE OF MOTION FOR AGE. NO JOINT EFFUSION. SKIN: NORMAL FOR ETHNICITY; NO ECCHYMOSIS. NO LESION. NORMAL TURGOR. : NORMAL EXTERNAL GENITALIA. PSYCH : APPROPRIATE MOOD AND AFFECT. ALERT AWAKE ORIENTED X3 Objective Labs Result Diagrams: 01/02/18 06:45 01/02/18 Unknown Labs: Laboratory Results - last 24 hr 01/01/18 01/01/18 01/01/18 19:30 19:30 19:54 WBC 9.6 RBC 4.61 Hgb 14.8 Hct 43.6 MCV 94.6 MCH 32.1 MCHC 33.9 RDW 13.3 Plt Count 220 Neut % (Auto) 79.4 H Lymph % (Auto) 14.7 L [place] % (Auto) 4.4 Eos % (Auto) 0.9 L Baso % (Auto) 0.6 Neut # (Auto) 7600 H Sodium Potassium Chloride Carbon Dioxide BUN Creatinine Estimated GFR BUN/Creatinine Ratio Glucose Calcium Magnesium 1.9 Total Bilirubin AST ALT Alkaline Phosphatase Total Creatine Kinase CK-MB (CK-2) CK-MB (CK-2) Rel Index Troponin I Total Protein Albumin Globulin Albumin/Globulin Ratio TSH 2.19 01/01/18 19:54 WBC RBC Hgb Hct MCV MCH MCHC RDW Plt Count Neut % (Auto) Lymph % (Auto) [place] % (Auto) Eos % (Auto) Baso % (Auto) Neut # (Auto) Sodium 141 Potassium 3.8 Chloride 101 Carbon Dioxide 27 BUN 20 Creatinine 1.10 Estimated GFR > 60.0 BUN/Creatinine Ratio 18.2 Glucose 112 H Calcium 9.7 Magnesium Total Bilirubin 0.8 AST 27 ALT 37 Alkaline Phosphatase 57 Total Creatine Kinase 76 CK-MB (CK-2) TNP CK-MB (CK-2) Rel Index TNP Troponin I 0.012 Total Protein 7.1 Albumin 4.7 Globulin 2.4 Albumin/Globulin Ratio 2.0 TSH Discharge Plan Discharge Plan Patient Disposition: Home Discharge Med Rec/Prescriptions Prescriptions: Continue irbesartan 300 mg Tablet 300 mg PO DAILY RF: 0 apixaban [Eliquis] 5 mg Tablet 5 mg PO BID RF: 0 hydrochlorothiazide 25 mg Tablet 25 mg PO DAILY RF: 0 Provider Discharge Instructions Diet: Low-fat and Low-cholesterol Visit Report/Discharge Packet Instructions: DI for Syncope in Adults (Fainting) Visit Report Forms: Stroke Signs & Symptoms Discharge Data Attending Provider: Jeanna Hutton Admit Date/Time: 01/01/18 21:05 Discharges patient from system. Discharge Date/Time: 01/02/18 07:59 Quality VTE Deep Vein Thrombosis/Pulmonary Embolism Present on Admission: No
--- NOTE | 2018-01-02 07:34 | PC.NURSE ---
Patient ready for discharge, ECHO not needed (cancelled by MD). IV removed intact. Patient states he has an appointment already scheduled with his bacteriologist food. Patient called for ride home. Declines breakfast. Denies complaints.
[2018-01-02 07:36] LABS: Add Manual Diff / Slide Review NO; Basophils Percent Auto 0.6 % (0-2); Eosinophils Percent Auto 1.5 % (2-4); Hematocrit 41.9 % (41-53); Hemoglobin 14.2 g/dL (13.5-17.5); Lymphocytes Percent Auto 25.2 % (25-40); Mean Corpuscular Hemoglobin 32.2 PG (26-34); Mean Corpuscular Volume 94.8 fL (80-100); Monocytes Percent Auto 6.8 % (3-14); Neutrophils Absolute Auto 4900 /uL (3000-5900); Neutrophils Percent Auto 65.9 % (50-75); Platelet Count 209 X10^3/uL (150-400); Red Blood Cell Count 4.42 X10^6/uL (4.5-5.9); Red Cell Distribution Width 12.9 % (11.6-14.8); White Blood Cell Count 7.4 X10^3/uL (4.5-11.0)
--- NOTE | 2018-01-02 07:45 | PC.NURSE ---
Discharge handout reviewed, patient states understanding and has no further questions or concerns at this time. Escorted out via wheelchair with all belongings by [facility].
[2018-01-02 08:04] LABS: BUN Creatinine Ratio 21.1 (6-22); Blood Urea Nitrogen 19 mg/dL (9-20); Calcium 9.3 mg/dL (8.4-10.2); Carbon Dioxide 26 mmol/L (22-32); Chloride 105 mmol/L (98-107); Estimated Glomerular Filt Rate > 60.0 mL/min (>60); Glucose 99 mg/dL (80-110); HEMOLYSIS < 15 (0-50); Potassium 4.2 mmol/L (3.4-5.1); Sodium 142 mmol/L (137-145)
--- NOTE | 2018-01-02 08:53 | CM.DANOTE ---
DCP: assessment: post d/c: case received this morning and EMR review showed that pt had admitted late last night to care of hospitalist team and had been d/c'd early this morning. Discussed with RN Coordinator Ros Rincon who states pt wished to get back to [facility]. He left at [id number] per nursing notes.
== END 2018-01-02 07:59 | disposition home or self-care (01) ==
LOC: ED 20:51 → AC 21:06
PROVIDERS: Admitting Provider Nurse Practitioner Gerontology; Emergency Provider Nurse Practitioner Family; Visit Provider Nurse Practitioner Gerontology
DX: I49.5 Sick sinus syndrome (principal); R55 Syncope and collapse; R00.2 Palpitations; I48.2 Chronic atrial fibrillation; I10 Essential (primary) hypertension; Z79.01 Long term (current) use of anticoagulants; I45.10 Unspecified right bundle-branch block
CPT/HCPCS: 36415; 36591; 71045; 80048; 80053; 81003; 82550; 83735; 84443; 84484; 85025; 93005; 96360; 96361; 99283; 99284; G0378